=== PATIENT | female | born 2000 | race Caucasian/White ===

== ENCOUNTER → 2023-11-29 11:38 | Outpatient (REF) | payer BC, SELFPAY | LOC: HWRAD 11:38 | PROVIDERS: ATTENDING PHYSICIAN Nurse Practitioner Adult Health | DX: J69.0 Pneumonitis due to inhalation of food and vomit (principal) | CPT/HCPCS: 71046 ==

== ENCOUNTER → 2023-12-21 13:49 | Outpatient (REF) | payer BC, SELFPAY | LOC: HWRAD 13:49 | PROVIDERS: ATTENDING PHYSICIAN Nurse Practitioner Adult Health | DX: N83.299 Other ovarian cyst, unspecified side (principal) | CPT/HCPCS: 76830; 76856 ==

== ENCOUNTER 2024-02-20 11:32 | Emergency (ER) | payer BC, SELFPAY ==
[2024-02-20 11:37] VITALS: BP 112/76
[2024-02-20] MEDS: OMNIPAQUE 50 ML PO (12:15)
[2024-02-20 15:37] LABS: % Basophils 0.8 % (0-2); % Eosinophils 1.2 % (0-6); % Immature Granulocytes 0.4 % (0-0.5); % Lymphocytes 37.7 % (20.5-51.1); % Monocytes 9.5 % (1.7-9.3); % Neutrophils 50.4 % (42.2-75.2); Absolute Eosinophils 0.1 10^3/uL (0-0.7); Absolute Lymphocytes 1.9 10^3/uL (1.2-3.4); Absolute Monocytes 0.5 10^3/uL (0.1-0.6); Absolute Neutrophils 2.6 10^3/uL (1.4-6.5); Hematocrit 41.8 % (37.0-47.0); Hemoglobin 14.6 g/dL (12.0-16.0); Mean Corp Hgb Conc. 34.9 g/dL (33.0-37.0); Mean Corpuscular Hgb 29.6 pg (27.0-31.0); Mean Corpuscular Volume 84.8 fL (81.0-99.0); Mean Platelet Volume 9.4 fL (7.4-10.4); Nucleated Red Blood Cells % 0 %; Platelet Count 273 10^3/uL (130-400); Red Blood Cell Count 4.93 10^6/uL (4.20-5.40); Red Cell Dist. Width 13.1 % (11.5-14.5); White Blood Cell Count 5.1 10^3/uL (4.8-10.8)
--- NOTE | 2024-02-20 15:38 | ED.GENMED ---
History of Present Illness
General
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
Source: patient
Exam Limitations: none
Time Seen by Provider: 02/20/24 11:57
Travel History
Have you had any contact with someone who has COVID-19?: No
Do you have any symptoms of coronavirus? Fever > 100 degrees, chills, cough, shortness of breath, sore throat, loss of taste or smell, muscle aches, or headache?: No
History of Present Illness
History of Present Illness:
23-year-old female presents with relatively sudden onset lower and right abdominal pain starting 2 days ago and has been persistent since. No nausea vomiting or fever. No lack of appetite. Pain unchanged with eating or urinating. No other
complaints
Past History
Past History
ED Past Medical History: Psychiatric (Generalized anxiety disorder, major depression, borderline personality disorder, migraines)
ED Past Surgical History: Other (Paton teeth. Repair of a Pectus Escavatum)
Social History
Tobacco: Non-smoker
Alcohol: None
Drug: None
Living: with family
Family History
Family History: Other (Reviewed and noncontributory)
Phy Exam
Physical Exam
Physical Exam:
General: Well-appearing female no acute respiratory distress
HEENT: Normocephalic atraumatic neck is supple
Heart: Regular rate and rhythm no murmurs
Lungs: Clear no wheeze or rales
Abdomen soft tender to the suprapubic region and to the right pelvic area. No guarding rebound normal bowel sounds nondistended no costovertebral angle tenderness
Course
Orders/Labs/Results
Orders:
Orders
02/20/24 12:05
Iohexol [Omnipaque] See Protocol PO NOW STA
Test Result ONCE
US Pelvis W Transvag Combined Urgent
Comment:
Reason For Exam: right lower abdominal pain
02/20/24 15:27
Complete Blood Count/With Diff Urgent
Comprehensive Metabolic Panel Urgent
HCG, Serum Qualitative Screen Urgent
Vital Signs
Initial and Last Documented VS:
Initial Vital Signs
Temp Pulse Resp BP Pulse Ox
98.1 F 63 18 112/76 100
02/20/24 11:37 02/20/24 11:37 02/20/24 11:37 02/20/24 11:37 02/20/24 11:37
Last Documented Vital Signs
Temp Pulse Resp BP Pulse Ox
98.1 F 63 18 112/76 100
02/20/24 11:37 02/20/24 11:37 02/20/24 11:37 02/20/24 11:37 02/20/24 11:37
MDM/Problems Addressed
Differential Diagnosis Includes:
Right lower abdominal pain. Consider ovarian cyst versus torsion versus appendicitis
Labs and ultrasound pending. If ultrasound negative consider CT
*Critical Care Note
Total Time (30-74mins, 75-104mins- exclusive of procedures): Not Applicable
Update Note
Update Note:
ultrasound abdomen demonstrates 3.5 cm right-sided ovarian cyst. I believe this is the source of the patient's discomfort. Do not suspect appendicitis as well. Recommended NSAIDs and gynecology follow-up
ED Attending Note
-
Portions of this chart may have been created with voice recognition software.� Occasional wrong word or��sound alike� substitutions may have occurred due to the inherent limitations of voice recognition software.
Discharge Plan
Departure
Patient Disposition: Home (Routine Discharge)
Date of Disposition: 02/20/24
Time of Disposition: 15:40
Patient with high blood pressure during this ER visit?: No
Discharge Problem:
Ovarian cyst
Instructions: Ovarian Cyst ED
Prescriptions:
No Action
Ajovy Autoinjector 225 mg/1.5 mL auto-injector
225 mg SC MONTHLY
Referrals:
Marjan Vu CRNP [Family Provider] -
Activity Restrictions/Additional Instructions:
Use ibuprofen for pain. Please return here for worsening pain. Follow-up with ultrasound
Interventions
Interventions:
*Risk Screen - Suicide Last Done: 02/20/24 11:37
*General Assessment Last Done: 02/20/24 12:26
*Neglect/Abuse Screening Last Done: 02/20/24 11:37
*ED COVID-19 Vaccine History Last Done: 02/20/24 11:37
ED-Female Genitourinary Assessment Last Done: 02/20/24 12:26
Discharge Date and Time
Print Language: LEBANESE
[2024-02-20 15:50] LABS: HCG, Serum Qualitative Screen Negative
[2024-02-20 15:52] VITALS: BP 100/70
[2024-02-20 15:53] LABS: ALT (SGPT) 14 U/L (0-35); AST (SGOT) 18 U/L (14-36); Albumin 4.6 g/dl (3.5-5.0); Alkaline Phosphatase 43 U/L (38-126); Blood Urea Nitrogen 6 mg/dl (7-17); Calcium 9.5 mg/dl (8.4-10.2); Carbon Dioxide 25 mmol/L (22-30); Chloride 106 mmol/L (98-107); Glucose 86 mg/dl (70-99); Potassium 4.8 mmol/L (3.5-5.1); Sodium 141 mmol/L (135-145); Total Bilirubin 1.3 mg/dl (0.2-1.3); Total Protein 7.4 g/dl (6.3-8.2); eGFR > 60.00
== END 2024-02-20 15:53 | disposition home or self-care (01) ==
LOC: EMR 11:32
PROVIDERS: Physician Assistant; EMERGENCY PHYSICIAN Student in an Organized Health Care Education/Training Program; FAMILY PHYSICIAN Nurse Practitioner Adult Health
DX: N83.201 Unspecified ovarian cyst, right side (principal)
CPT/HCPCS: 99284; 76830; 76856; 80053; 84703; 85025

== ENCOUNTER → 2024-10-23 11:12 | Outpatient (REF) | payer BC, SELFPAY | LOC: HWRAD 11:12 | PROVIDERS: ATTENDING PHYSICIAN Nurse Practitioner Adult Health | DX: M79.645 Pain in left finger(s) (principal); M25.532 Pain in left wrist | CPT/HCPCS: 73110; 73130 ==